=== PATIENT | male | born 1980 | race Caucasian/White ===

== ENCOUNTER 2016-11-09 06:02 | Day surgery (SDC) | payer OTHER ==
--- NOTE | 2016-11-04 13:01 | PCM.ANEPRE ---
Anesthesia Pre-Op Review Reason for Review: BMI >45 COMORBIDITIES Additional Comments 36 y/o male with BMI >45 here for circumcision. Ok to proceed. Rojas Durán MD Nov 04, 2016 13:01
[~2016-11-09] VITALS: Ht 185.4 cm; Wt 173.5 kg
[~2016-11-09 06:02] MED LIST: BETA15OI2 TOP; CeFAZolin 2 Gm/50 mL D5W IV Premix IV ONE; CeFAZolin Inj 3 Gm/ D5W 50 mL Bag IV ONE; IBUP800T28 PO; LOSA100T29 PO; Lactated Ringer's 1,000 ML IV SCH; METF1000 PO; MULT-1018 PO; OXYC1TAB24 PO; TEST200V20 IM
[2016-11-09] MEDS ORDERED: GABA600T2 PO (06:47)
[2016-11-09 06:56] VITALS: BP 132/84; PULSE 101; RESP 20; O2SAT 97
== END 2016-11-09 23:59 | disposition home or self-care (01) ==
LOC: SAS 06:02
PROVIDERS: ATTEND Urology
DX: N47.1 Phimosis (principal); Z53.09 Procedure and treatment not carried out because of other contraindication